=== PATIENT | male | born 1995 | race Caucasian/White ===

== ENCOUNTER 2022-11-25 21:17 | Emergency (ER) | payer OTHER ==
[2022-11-25] MEDS ORDERED: TORAdol 30 mg Injection IM ONE (23:03)
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
[2022-11-25] MEDS ORDERED: TORAdol 30 mg Injection ONE (23:05)
[2022-11-25 23:27] VITALS: BP 127/72; PULSE 77
[2022-11-25 23:45] VITALS: O2SAT 100
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
== END 2022-11-25 23:33 | disposition home or self-care (01) ==
LOC: ED 21:17
DX: S40.011A Contusion of right shoulder, initial encounter (principal); V86.56XA Driver of dirt bike or motor/cross bike injured in nontraffic accident, initial encounter; Z28.310 Unvaccinated for COVID-19
CPT/HCPCS: 73030; 96372; 99283; J1885

== ENCOUNTER 2022-11-26 11:07 | Emergency (ER) | payer OTHER ==
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
[2022-11-26 11:48] VITALS: O2SAT 98
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
== END 2022-11-26 12:46 | disposition home or self-care (01) ==
LOC: ED 11:07
DX: M25.511 Pain in right shoulder (principal); Z28.310 Unvaccinated for COVID-19
CPT/HCPCS: 73030; 99282